=== PATIENT | female | born 1985 | race Caucasian/White ===

== ENCOUNTER 2017-07-27 12:08 | Emergency (ER) | payer OTHER ==
[~2017-07-27] VITALS: Ht 162.6 cm; Wt 74.8 kg
[~2017-07-27 12:08] MED LIST: ACET325; ALBU90OI INH; AMOX500 PO; CEPH500 PO; CIPR500 PO; CLIN300 PO; CODACE30 PO; CRUTCH3 USE; CYCL10 PO; Cleocin HCl150 MG PO; DOXY100 PO; FAMO20 PO; HYDACE5 PO; HYDACE5325 PO; HYDGUAL120 PO; IBUP600 PO; IBUP800 PO; LEVFLO250 PO; NAPR500 PO; Naprosyn375 MG PO; Naprosyn500 MG PO; Norco 5-325 Ta1 EACH PO; ONDA4ODT MM; OXYACE5T PO; PENVK500 PO; PHENA200 PO; PRED10 PO; PROM25 PO; RXCLIN PO; RXCODACET PO; RXHYDACE PO; RXOXYACE PO; SULTRIDS PO; TRAM50 PO
[2017-07-27] MEDS ORDERED: Ultram50 MG PO (14:16)
[2018-03-26] MEDS ORDERED: Cipro500 MG PO (00:39)
[2018-03-26] MEDS ORDERED: Roxicodone5 MG PO (00:46)
== END 2017-07-27 14:22 | disposition home or self-care (01) ==
LOC: ER 12:08
DX: M24.211 Disorder of ligament, right shoulder (principal); F17.210 Nicotine dependence, cigarettes, uncomplicated; Z79.1 Long term (current) use of non-steroidal anti-inflammatories (NSAID)
CPT/HCPCS: 96372; 99283; J1885

== ENCOUNTER 2017-10-11 09:12 | Emergency (ER) | payer OTHER ==
[~2017-10-11] VITALS: Ht 165.1 cm; Wt 63.5 kg
[~2017-10-11 09:12] MED LIST changes: +Ultram50 MG PO
[2017-10-11 10:14] LABS: BASOPHILS ABSOLUTE AUTO 0.05 K/mm3 (0.00-0.23); BASOPHILS PERCENT AUTO 1 % (0-2); EOSINOPHILS ABSOLUTE AUTO 0.62 K/mm3 (0.00-0.68); EOSINOPHILS PERCENT AUTO 9 % (0-6); Hematocrit 41.3 % (33.0-51.0); Hemoglobin 13.8 g/dL (11.5-16.0); IMMATURE GRAN ABSOLUTE AUTO 0.03 K/mm3 (0.00-0.10); IMMATURE GRAN PERCENT AUTO 0 % (0-1); LYMPHOCYTES ABSOLUTE AUTO 1.28 K/mm3 (0.84-5.20); LYMPHOCYTES PERCENT AUTO 18 % (21-46); MONOCYTES ABSOLUTE AUTO 0.74 K/mm3 (0.16-1.47); MONOCYTES PERCENT AUTO 10 % (4-13); Mean Corpuscular HGB 29.9 pg (26.0-34.0); Mean Corpuscular HGB Conc 33.4 g/dL (31.5-36.5); Mean Corpuscular Volume 89 fL (80-100); Mean Platelet Volume 9.8 fL (9.1-12.4); NEUTROPHILS ABSOLUTE AUTO 4.43 K/mm3 (1.96-9.15); NEUTROPHILS PERCENT AUTO 62 % (41-73); Platelet Count 180 K/mm3 (150-400); RDW Coefficient Variation 14.2 % (11.7-14.2); RDW Standard Deviation 46.2 fL (35.1-46.3); Red Blood Cell Count 4.62 M/mm3 (3.80-5.20); White Blood Cell Count 7.15 K/mm3 (4.00-11.30)
[2017-10-11 10:26] LABS: Alanine Aminotransfer (ALT/SGP 205 U/L (12-78); Albumin, Blood 3.1 g/dL (3.4-5.0); Albumin/Globulin Ratio 0.8 (0.8-1.8); Alk Phos 85 U/L (50-136); Anion Gap 10 mmol/L (6-16); Aspartate Aminotrans (AST/SGOT 184 U/L (12-37); Bilirubin, Total 0.6 mg/dL (0.1-1.0); Blood Urea Nitrogen 4 mg/dL (8-24); Bun/Creatinine Ratio 6.8 (12.0-20.0); CO2, Blood 22 mmol/L (21-32); Calcium, Blood 8.7 mg/dL (8.5-10.1); Chloride, Blood 107 mmol/L (98-108); Creatinine, Blood 0.59 mg/dL (0.40-1.00); Globulin, Blood 3.7 g/dL (2.2-4.0); Glomerular Filtration Rate >60 (60-); Glucose, Blood 105 mg/dL (70-99); Potassium, Blood 4.4 mmol/L (3.5-5.5); Sodium, Blood 139 mmol/L (136-145); Total Protein, Blood 6.8 g/dL (6.4-8.2)
[2017-10-11] MEDS ORDERED: Ultram50 MG PO (13:22)
[2017-10-11] MEDS ORDERED: PROM25 PO (13:22)
== END 2017-10-11 13:48 | disposition home or self-care (01) ==
LOC: ER 09:12
PROVIDERS: Physician Assistant
DX: R10.32 Left lower quadrant pain (principal); R94.5 Abnormal results of liver function studies; R05 Cough; F17.210 Nicotine dependence, cigarettes, uncomplicated; Z86.19 Personal history of other infectious and parasitic diseases
CPT/HCPCS: 36415; 74176; 76830; 76856; 80053; 81000; 85025; 96374; 96375; 99284; J1885; J3010; J7030

== ENCOUNTER 2017-10-15 14:51 | Day surgery (SDC) | payer OTHER | END 2017-10-15 22:44 | disposition home or self-care (01) | LOC: RAD 14:51 | PROC: BP38ZZZ Magnetic Resonance Imaging (MRI) of Right Shoulder (ICD-10-PCS; principal; 2017-10-15) | DX: S43.401A Unspecified sprain of right shoulder joint, initial encounter (principal) | CPT/HCPCS: 23350; 73222; 77002; A9577; Q9967 ==

== ENCOUNTER 2017-11-19 23:15 | Emergency (ER) | payer OTHER ==
[~2017-11-19] VITALS: Ht 165.1 cm; Wt 65.8 kg
[2017-11-20] MEDS ORDERED: Percocet 5-3251 EACH PO (00:08)
[2017-11-20] MEDS ORDERED: Augmentin 875-1 EACH PO (00:08)
== END 2017-11-20 00:20 | disposition home or self-care (01) ==
LOC: ER 23:15
DX: K02.9 Dental caries, unspecified (principal); Z87.891 Personal history of nicotine dependence
CPT/HCPCS: 99282; J1100

== ENCOUNTER 2018-02-03 06:04 | Day surgery (SDC) | payer OTHER ==
[~2018-02-03] VITALS: Ht 165.1 cm; Wt 72.7 kg
[~2018-02-03 06:04] MED LIST changes: +Augmentin 875-1 EACH PO; +Percocet 5-3251 EACH PO
== END 2018-02-03 11:05 | disposition home or self-care (01) ==
LOC: ORSCSDS 06:04
PROVIDERS: Orthopaedic Surgery
PROC: 0RQJ4ZZ Repair Right Shoulder Joint, Percutaneous Endoscopic Approach (ICD-10-PCS; principal; 2018-02-03 07:30)
DX: S43.001A Unspecified subluxation of right shoulder joint, initial encounter (principal); B19.20 Unspecified viral hepatitis C without hepatic coma; Z87.891 Personal history of nicotine dependence; J45.909 Unspecified asthma, uncomplicated
CPT/HCPCS: C1713; J0171; J0690; J2250; J2795; J3010; J7120

== ENCOUNTER 2018-02-05 18:35 | Emergency (ER) | payer OTHER ==
[~2018-02-05] VITALS: Ht 165.1 cm; Wt 70.3 kg
[2018-02-05] MEDS ORDERED: HYDR1TAB94 PO (18:45)
[2018-02-05] MEDS ORDERED: Norco 5-325 Ta1 EACH PO (19:19)
== END 2018-02-05 19:27 | disposition home or self-care (01) ==
LOC: ER 18:35
DX: G89.18 Other acute postprocedural pain (principal); M25.511 Pain in right shoulder; Z87.891 Personal history of nicotine dependence
CPT/HCPCS: 99283

== ENCOUNTER 2018-11-01 15:22 | Emergency (ER) | payer OTHER ==
[~2018-11-01] VITALS: Ht 165.1 cm; Wt 78.0 kg
[~2018-11-01 15:22] MED LIST changes: +Cipro500 MG PO; +HYDR1TAB94 PO; +Roxicodone5 MG PO
[2018-11-01 16:27] LABS: Source, Urine Clean Catch
[2018-11-01 16:31] LABS: Bilirubin, Urine Neg (Neg); Blood, Urine Neg (Neg); Glucose Qualitative, Urine Neg (Neg); Ketones, Urine Neg (Neg); Leukocyte Esterase, Urine Neg (Neg); Nitrite, Urine Neg (Neg); Protein, Urine Neg (Neg); Specific Gravity, Urine 1.015 (1.003-1.022); Urobilinogen, Urine NORM (Normal)
[2018-11-01 16:31] LABS: BASOPHILS ABSOLUTE AUTO 0.03 K/mm3 (0.00-0.23); BASOPHILS PERCENT AUTO 0 % (0-2); EOSINOPHILS ABSOLUTE AUTO 0.35 K/mm3 (0.00-0.68); EOSINOPHILS PERCENT AUTO 5 % (0-6); Hematocrit 42.2 % (33.0-51.0); Hemoglobin 13.6 g/dL (11.5-16.0); IMMATURE GRAN ABSOLUTE AUTO 0.01 K/mm3 (0.00-0.10); IMMATURE GRAN PERCENT AUTO 0 % (0-1); LYMPHOCYTES ABSOLUTE AUTO 2.18 K/mm3 (0.84-5.20); LYMPHOCYTES PERCENT AUTO 29 % (21-46); MONOCYTES ABSOLUTE AUTO 0.74 K/mm3 (0.16-1.47); MONOCYTES PERCENT AUTO 10 % (4-13); Mean Corpuscular HGB 28.3 pg (26.0-34.0); Mean Corpuscular HGB Conc 32.2 g/dL (31.5-36.5); Mean Corpuscular Volume 88 fL (80-100); Mean Platelet Volume 10.6 fL (9.1-12.4); NEUTROPHILS PERCENT AUTO 57 % (41-73); Platelet Count 207 K/mm3 (150-400); RDW Coefficient Variation 14.2 % (11.7-14.2); RDW Standard Deviation 46.2 fL (35.1-46.3); White Blood Cell Count 7.61 K/mm3 (4.00-11.30)
[2018-11-01 16:41] LABS: Appearance, Urine Clear (Clear); Color, Urine Yellow (P-Yellow)
[2018-11-01 16:53] LABS: Alanine Aminotransfer (ALT/SGP 20 U/L (12-78); Albumin, Blood 4.2 g/dL (3.4-5.0); Albumin/Globulin Ratio 1.1 (0.8-1.8); Alk Phos 114 U/L (50-136); Anion Gap 4 mmol/L (6-16); Aspartate Aminotrans (AST/SGOT 23 U/L (12-37); Bilirubin, Total 0.5 mg/dL (0.1-1.0); Blood Urea Nitrogen 12 mg/dL (8-24); Bun/Creatinine Ratio 15.9 (12.0-20.0); CO2, Blood 27 mmol/L (21-32); Calcium, Blood 9.4 mg/dL (8.5-10.1); Chloride, Blood 106 mmol/L (98-108); Creatinine, Blood 0.75 mg/dL (0.40-1.00); Globulin, Blood 3.9 g/dL (2.2-4.0); Glomerular Filtration Rate >60 (60-); Glucose, Blood 63 mg/dL (70-99); Potassium, Blood 4.1 mmol/L (3.5-5.5); Sodium, Blood 137 mmol/L (136-145); Total Protein, Blood 8.1 g/dL (6.4-8.2)
[2018-11-01] MEDS ORDERED: Nicoderm Cq1 EACH TOP (19:45)
[2018-11-01] MEDS ORDERED: Cyclobenzaprine5 MG PO (19:47)
[2018-11-01] MEDS ORDERED: LIDO700A20 TOP (19:47)
[2018-11-01] MEDS ORDERED: IBUP800 PO (19:47)
== END 2018-11-01 19:58 | disposition home or self-care (01) ==
LOC: ER 15:22
PROVIDERS: Physician Assistant
DX: M54.5 Low back pain (principal); Z87.891 Personal history of nicotine dependence
CPT/HCPCS: 36415; 74176; 80053; 81003; 81025; 85025; 99284-25; A9270-GY

== ENCOUNTER 2019-02-13 13:42 | Emergency (ER) | payer OTHER ==
[~2019-02-13] VITALS: Ht 165.1 cm; Wt 69.8 kg
[~2019-02-13 13:42] MED LIST changes: +Cyclobenzaprine5 MG PO; +LIDO700A20 TOP; +Nicoderm Cq1 EACH TOP
[2019-02-13] MEDS ORDERED: Prednisone20 MG PO (16:40)
== END 2019-02-13 16:51 | disposition home or self-care (01) ==
LOC: ER 13:42
DX: M54.12 Radiculopathy, cervical region (principal); M54.5 Low back pain; F41.9 Anxiety disorder, unspecified; Z79.899 Other long term (current) drug therapy; Z87.891 Personal history of nicotine dependence
CPT/HCPCS: 72131; 99283-25; J7512

== ENCOUNTER 2019-03-24 14:49 | Emergency (ER) | payer OTHER ==
[~2019-03-24] VITALS: Ht 165.1 cm; Wt 65.8 kg
[~2019-03-24 14:49] MED LIST changes: +Prednisone20 MG PO
[2019-03-24] MEDS ORDERED: MELO7.5 PO (15:21)
[2019-03-24] MEDS ORDERED: OMEPRAZOLE20 MG PO (15:21)
[2019-03-24] MEDS ORDERED: Ultram50 MG PO (16:07)
[2019-03-24] MEDS ORDERED: Prednisone20 MG PO (16:07)
== END 2019-03-24 16:31 | disposition home or self-care (01) ==
LOC: ER 14:49
DX: M50.10 Cervical disc disorder with radiculopathy, unspecified cervical region (principal); M51.16 Intervertebral disc disorders with radiculopathy, lumbar region; F17.290 Nicotine dependence, other tobacco product, uncomplicated; Z79.899 Other long term (current) drug therapy; Z79.891 Long term (current) use of opiate analgesic
CPT/HCPCS: 99283; J7512

== ENCOUNTER 2019-04-02 13:25 | Emergency (ER) | payer OTHER ==
[~2019-04-02] VITALS: Ht 165.1 cm; Wt 77.1 kg
[~2019-04-02 13:25] MED LIST changes: +MELO7.5 PO; +OMEPRAZOLE20 MG PO
[2019-04-02] MEDS ORDERED: TIZA4 PO (16:24)
== END 2019-04-02 17:00 | disposition home or self-care (01) ==
LOC: ER 13:25
DX: M54.12 Radiculopathy, cervical region (principal); M62.830 Muscle spasm of back; F41.9 Anxiety disorder, unspecified; F17.290 Nicotine dependence, other tobacco product, uncomplicated; Z79.899 Other long term (current) drug therapy; Z79.51 Long term (current) use of inhaled steroids
CPT/HCPCS: 72125; 96374; 96375; 99284-25; A9270; J1170; J1885

== ENCOUNTER 2019-04-05 13:27 | Emergency (ER) | payer OTHER ==
[~2019-04-05] VITALS: Ht 165.1 cm; Wt 82.5 kg
[~2019-04-05 13:27] MED LIST changes: +TIZA4 PO
[2019-04-05 14:26] LABS: BASOPHILS ABSOLUTE AUTO 0.03 K/mm3 (0.00-0.23); BASOPHILS PERCENT AUTO 0 % (0-2); EOSINOPHILS ABSOLUTE AUTO 0.41 K/mm3 (0.00-0.68); EOSINOPHILS PERCENT AUTO 5 % (0-6); Hematocrit 38.7 % (33.0-51.0); Hemoglobin 12.2 g/dL (11.5-16.0); IMMATURE GRAN ABSOLUTE AUTO 0.03 K/mm3 (0.00-0.10); IMMATURE GRAN PERCENT AUTO 0 % (0-1); LYMPHOCYTES ABSOLUTE AUTO 1.92 K/mm3 (0.84-5.20); LYMPHOCYTES PERCENT AUTO 23 % (21-46); MONOCYTES ABSOLUTE AUTO 0.81 K/mm3 (0.16-1.47); MONOCYTES PERCENT AUTO 10 % (4-13); Mean Corpuscular HGB 27.5 pg (26.0-34.0); Mean Corpuscular HGB Conc 31.5 g/dL (31.5-36.5); Mean Corpuscular Volume 87 fL (80-100); Mean Platelet Volume 9.9 fL (9.1-12.4); NEUTROPHILS ABSOLUTE AUTO 5.23 K/mm3 (1.96-9.15); NEUTROPHILS PERCENT AUTO 62 % (41-73); Platelet Count 214 K/mm3 (150-400); RDW Coefficient Variation 14.6 % (11.7-14.2); RDW Standard Deviation 47.3 fL (35.1-46.3); Red Blood Cell Count 4.43 M/mm3 (3.80-5.20); White Blood Cell Count 8.43 K/mm3 (4.00-11.30)
[2019-04-05 14:49] LABS: Alanine Aminotransfer (ALT/SGP 21 U/L (12-78); Albumin, Blood 3.5 g/dL (3.4-5.0); Albumin/Globulin Ratio 0.9 (0.8-1.8); Alk Phos 87 U/L (50-136); Anion Gap 3 mmol/L (6-16); Aspartate Aminotrans (AST/SGOT 11 U/L (12-37); Bilirubin, Total 0.5 mg/dL (0.1-1.0); Blood Urea Nitrogen 22 mg/dL (8-24); Bun/Creatinine Ratio 29.4 (12.0-20.0); CO2, Blood 27 mmol/L (21-32); Calcium, Blood 8.8 mg/dL (8.5-10.1); Chloride, Blood 108 mmol/L (98-108); Creatinine, Blood 0.75 mg/dL (0.40-1.00); Globulin, Blood 3.8 g/dL (2.2-4.0); Glomerular Filtration Rate >60 (60-); Glucose, Blood 89 mg/dL (70-99); Sodium, Blood 138 mmol/L (136-145); Total Protein, Blood 7.3 g/dL (6.4-8.2)
== END 2019-04-05 14:44 | disposition home or self-care (01) ==
LOC: ER 13:27
PROVIDERS: Physician Assistant
DX: R51 Headache (principal); F17.200 Nicotine dependence, unspecified, uncomplicated
CPT/HCPCS: 36415; 70496; 70498; 80053; 85025; 99284-25; Q9967

== ENCOUNTER → 2019-06-12 | Outpatient (CLI) | payer OTHER ==
[2019-06-17 10:06] LABS: ANABASINE <1 ng/mL (.); COTININE <10 ng/mL (.); NICOTINE <10 ng/mL (.)
== END | disposition home or self-care (01) ==
LOC: LAB 13:45 → LAB SHORT 13:45
PROVIDERS: Obstetrics & Gynecology
DX: F17.200 Nicotine dependence, unspecified, uncomplicated (principal)
CPT/HCPCS: G0480

== ENCOUNTER 2021-12-28 23:41 | Emergency (ER) | payer OTHER ==
[~2021-12-28] VITALS: Ht 165.1 cm; Wt 77.1 kg
[2021-12-29] MEDS ORDERED: PREG100 PO (01:34)
[2021-12-29] MEDS ORDERED: Norco 5-325 Ta1 EACH PO (03:33)
[2021-12-29] MEDS ORDERED: IBUP600 PO (03:33)
== END 2021-12-29 03:50 | disposition home or self-care (01) ==
LOC: ER 23:41
DX: M54.9 Dorsalgia, unspecified (principal); M79.7 Fibromyalgia; F17.210 Nicotine dependence, cigarettes, uncomplicated; Z79.899 Other long term (current) drug therapy
CPT/HCPCS: 72070; 82947; A9270; J1170; J1885

== ENCOUNTER 2022-09-27 17:46 | Emergency (ER) | payer OTHER ==
[~2022-09-27] VITALS: Ht 165.1 cm; Wt 77.1 kg
[~2022-09-27 17:46] MED LIST changes: +PREG100 PO
[2022-09-27 17:50] VITALS: BP 128/96
[2022-09-27] MEDS ORDERED: SUMA5NI (17:53)
[2022-09-27] MEDS ORDERED: PREG100 PO (17:53)
[2022-09-27] MEDS ORDERED: PROP60 PO (17:53)
[2022-09-27] MEDS ORDERED: ALBU90OI INH (17:54)
[2022-09-27] MEDS ORDERED: FLUTICASONE-SA1 EAC1 INH (17:54)
[2022-09-27] MEDS ORDERED: BUTALB-ACETAMI1 EAC7 PO (17:54)
[2022-09-27] MEDS ORDERED: AMOCLA875 PO (17:55)
== END 2022-09-27 18:48 | disposition home or self-care (01) ==
LOC: ER 17:46
DX: S51.852A Open bite of left forearm, initial encounter (principal); W54.0XXA Bitten by dog, initial encounter; Z79.899 Other long term (current) drug therapy; F17.210 Nicotine dependence, cigarettes, uncomplicated
CPT/HCPCS: 99283

== ENCOUNTER 2022-10-20 06:59 | Emergency (ER) | payer OTHER ==
[~2022-10-20] VITALS: Ht 165.1 cm; Wt 77.1 kg
[~2022-10-20 06:59] MED LIST changes: +AMOCLA875 PO; +BUTALB-ACETAMI1 EAC7 PO; +FLUTICASONE-SA1 EAC1 INH; +PROP60 PO; +SUMA5NI
[2022-10-20 09:19] VITALS: BP 119/72
== END 2022-10-20 09:19 | disposition home or self-care (01) ==
LOC: ER 06:59
DX: S51.811A Laceration without foreign body of right forearm, initial encounter (principal); F17.210 Nicotine dependence, cigarettes, uncomplicated; W27.0XXA Contact with workbench tool, initial encounter; Z79.899 Other long term (current) drug therapy
CPT/HCPCS: 12004; 96372-59; 99282-25; J1885; J3010

== ENCOUNTER 2022-12-06 10:18 | Emergency (ER) | payer OTHER ==
[~2022-12-06] VITALS: Ht 165.1 cm; Wt 76.2 kg
[2022-12-06 10:50] VITALS: BP 136/96
== END 2022-12-06 12:05 | disposition home or self-care (01) ==
LOC: ER 10:18
DX: S61.512A Laceration without foreign body of left wrist, initial encounter (principal); F17.290 Nicotine dependence, other tobacco product, uncomplicated; W26.0XXA Contact with knife, initial encounter; Z79.899 Other long term (current) drug therapy
CPT/HCPCS: 99282

== ENCOUNTER 2023-04-24 12:01 | Emergency (ER) | payer OTHER ==
[~2023-04-24] VITALS: Ht 165.1 cm; Wt 86.2 kg
[2023-04-24 12:09] VITALS: BP 115/90
[2023-04-24 13:02] LABS: Influenza B, PCR NEGATIVE (NEGATIVE); Resp Syncytial Virus, PCR NEGATIVE (NEGATIVE); SARS-Cov-2 (COVID-19) PCR, MMC NEGATIVE (NEGATIVE)
[2023-04-24 13:05] LABS: Influenza A, PCR POSITIVE (NEGATIVE)
[2023-04-24] MEDS ORDERED: Tamiflu75 MG PO ×2 (13:59→17:04)
== END 2023-04-24 14:06 | disposition home or self-care (01) ==
LOC: ER 12:01
PROVIDERS: Physician Assistant
DX: J10.1 Influenza due to other identified influenza virus with other respiratory manifestations (principal); Z79.899 Other long term (current) drug therapy; F17.210 Nicotine dependence, cigarettes, uncomplicated; Z20.822 Contact with and (suspected) exposure to COVID-19
CPT/HCPCS: 0241U; 99283

== ENCOUNTER → 2024-07-26 | Outpatient (CLI) | payer OTHER ==
[~2024-07-26] MED LIST changes: +AZIT250 PO; +Tamiflu75 MG PO
[2024-07-26 16:34] LABS: BASOPHILS ABSOLUTE AUTO 0.06 K/mm3 (0.00-0.23); BASOPHILS PERCENT AUTO 1 % (0-2); EOSINOPHILS ABSOLUTE AUTO 0.38 K/mm3 (0.00-0.68); EOSINOPHILS PERCENT AUTO 5 % (0-6); Hematocrit 37.6 % (33.0-51.0); Hemoglobin 12.4 g/dL (11.5-16.0); IMMATURE GRAN ABSOLUTE AUTO 0.01 K/mm3 (0.00-0.10); IMMATURE GRAN PERCENT AUTO 0 % (0-1); LYMPHOCYTES ABSOLUTE AUTO 2.61 K/mm3 (0.84-5.20); LYMPHOCYTES PERCENT AUTO 33 % (21-46); MONOCYTES ABSOLUTE AUTO 0.77 K/mm3 (0.16-1.47); MONOCYTES PERCENT AUTO 10 % (4-13); Mean Corpuscular Volume 79 fL (80-100); Mean Platelet Volume 10.5 fL (9.1-12.4); NEUTROPHILS ABSOLUTE AUTO 3.98 K/mm3 (1.96-9.15); NEUTROPHILS PERCENT AUTO 51 % (41-73); Platelet Count 254 K/mm3 (150-400); RDW Coefficient Variation 14.4 % (11.7-14.2); RDW Standard Deviation 41.1 fL (35.1-46.3); Red Blood Cell Count 4.77 M/mm3 (3.80-5.20); White Blood Cell Count 7.81 K/mm3 (4.00-11.30)
[2024-07-26 16:50] LABS: Alanine Aminotransfer (ALT/SGP 18 U/L (12-78); Albumin, Blood 3.8 g/dL (3.4-5.0); Alk Phos 96 U/L (50-136); Anion Gap 9 mmol/L (3-11); Aspartate Aminotrans (AST/SGOT 15 U/L (12-37); Bilirubin, Total 0.4 mg/dL (0.1-1.0); Blood Urea Nitrogen 15 mg/dL (8-24); CHOL/HDL RATIO 2.5; CO2, Blood 26 mmol/L (21-32); Calcium, Blood 9.2 mg/dL (8.5-10.1); Chloride, Blood 105 mmol/L (98-108); Cholesterol 195 mg/dL (50-200); Globulin, Blood 3.9 g/dL (2.2-4.0); Glucose, Blood 99 mg/dL (70-99); HDL Cholesterol 77 mg/dL (>39); LDL/HDL RATIO 1.3; Low Density Lipoprotein Chol 102 mg/dL (0-110); Potassium, Blood 4.4 mmol/L (3.5-5.5); Sodium, Blood 136 mmol/L (136-145); Total Protein, Blood 7.7 g/dL (6.4-8.2); Triglycerides 81 mg/dL (30-160); Very Low Density Lipoprot Chol 16 mg/dL (6-32)
[2024-07-26 16:59] LABS: Bun/Creatinine Ratio 16.1 (12.0-20.0); Creatinine, Blood 0.93 mg/dL (0.40-1.00); Glomerular Filtration Rate 80 (60-)
[2024-07-28 15:10] LABS: HCV QNT BY NAAT (IU/ML) Not Detected; HCV QNT BY NAAT (LOG IU/ML) Not Detected; HCV QNT BY NAAT INTERP Not Detected (Not Detected)
== END | disposition home or self-care (01) ==
LOC: LAB 15:13 → LAB SHORT 15:13
PROVIDERS: Family Medicine
DX: Z01.89 Encounter for other specified special examinations (principal); Z86.19 Personal history of other infectious and parasitic diseases; Z79.899 Other long term (current) drug therapy
CPT/HCPCS: 80053; 80061; 82306; 83036; 84443; 85025; 87522